=== PATIENT | male | born 1995 | race Caucasian/White ===

== ENCOUNTER 2016-11-21 17:12 | Emergency (ER) | payer OTHER ==
[2016-11-21 19:17] VITALS: BP 129/89
== END 2016-11-21 19:17 | disposition home or self-care (01) ==
LOC: ED 17:12
DX: H10.32 Unspecified acute conjunctivitis, left eye (principal)
CPT/HCPCS: J8540

== ENCOUNTER 2019-07-06 02:27 | Emergency (ER) | payer OTHER ==
[~2019-07-06] VITALS: Ht 172.7 cm; Wt 108.0 kg
[2019-07-06 02:33] VITALS: Ht 172.7 cm; Wt 108.0 kg
[2019-07-06 03:18] LABS: BASOPHIL % 0.6 % (0-2); PLATELET COUNT 286 x10^3mcL (130-400); RED CELL DISTRIBUTION WIDTH 11.8 % (11.5-14.5)
[2019-07-06 03:35] LABS: CARBON DIOXIDE 33.6 mmol/L (21-32); CHLORIDE SERUM 106 mmol/L (98-107); CREATININE SERUM 0.9 mg/dL (0.7-1.3); GFR1 > 60 mL/min; GLUCOSE SERUM 128 mg/dL (74-106); POTASSIUM SERUM 3.9 mmol/L (3.5-5.1); SODIUM SERUM 146 mmol/L (136-145)
[2019-07-06 03:40] LABS: ALBUMIN 4.2 g/dL (3.4-5.0); ALT/SGPT 59 U/L (16-63); BILIRUBIN TOTAL 0.3 mg/dL (0.20-1.00); LIPASE 159 IU/L (73-393); TOTAL PROTEIN, SERUM 7.8 g/dL (6.4-8.2)
[2019-07-06 04:07] LABS: ALKALINE PHOSPHATASE 64 U/L (46-116); AST/SGOT 22 U/L (15-37)
[2019-07-06 07:11] VITALS: BP 122/68
== END 2019-07-06 07:11 | disposition home or self-care (01) ==
LOC: ED 02:27
DX: K80.50 Calculus of bile duct without cholangitis or cholecystitis without obstruction (principal)
CPT/HCPCS: 36415; J1885

== ENCOUNTER 2019-08-03 21:54 | Inpatient (IN) | payer OTHER ==
[~2019-08-03] VITALS: Ht 172.7 cm; Wt 104.9 kg
[2019-08-03 23:07] VITALS: Ht 172.7 cm; Wt 104.9 kg
[2019-08-03 23:57] LABS: BASOPHIL % 0.9 % (0-2); PLATELET COUNT 319 x10^3mcL (130-400); RED CELL DISTRIBUTION WIDTH 12.2 % (11.5-14.5)
[2019-08-04 00:22] LABS: ALBUMIN 3.9 g/dL (3.4-5.0); AST/SGOT 19 U/L (15-37); BILIRUBIN TOTAL 0.3 mg/dL (0.20-1.00); CARBON DIOXIDE 27.2 mmol/L (21-32); CHLORIDE SERUM 104 mmol/L (98-107); CREATININE SERUM 0.8 mg/dL (0.7-1.3); GFR1 > 60 mL/min; GLUCOSE SERUM 96 mg/dL (74-106); POTASSIUM SERUM 3.8 mmol/L (3.5-5.1); SODIUM SERUM 140 mmol/L (136-145); TOTAL PROTEIN, SERUM 7.9 g/dL (6.4-8.2)
[2019-08-04 00:23] LABS: ALKALINE PHOSPHATASE 66 U/L (46-116); ALT/SGPT 48 U/L (16-63); LIPASE 180 IU/L (73-393)
[2019-08-04 04:18] LABS: ALBUMIN 3.5 g/dL (3.4-5.0); CARBON DIOXIDE 30.1 mmol/L (21-32); CHLORIDE SERUM 103 mmol/L (98-107); CREATININE SERUM 0.7 mg/dL (0.7-1.3); GFR1 > 60 mL/min; GLUCOSE SERUM 105 mg/dL (74-106); SODIUM SERUM 137 mmol/L (136-145); TOTAL PROTEIN, SERUM 7.1 g/dL (6.4-8.2)
[2019-08-04 04:19] LABS: ALKALINE PHOSPHATASE 56 U/L (46-116); ALT/SGPT 47 U/L (16-63); AST/SGOT 18 U/L (15-37); BILIRUBIN TOTAL 0.3 mg/dL (0.20-1.00); CALCIUM 8.2 mg/dL (8.5-10.1)
[2019-08-04 08:40] VITALS: BP 139/72
[2019-08-04 12:31] VITALS: BP 145/78
[2019-08-04 16:39] VITALS: BP 157/87
[2019-08-04 20:08] VITALS: BP 132/81
[2019-08-05 05:00] VITALS: BP 128/71
[2019-08-05 07:15] LABS: BASOPHIL % 0.1 % (0-2); PLATELET COUNT 302 x10^3mcL (130-400); RED CELL DISTRIBUTION WIDTH 12.4 % (11.5-14.5)
[2019-08-05 07:48] LABS: CALCIUM 8.8 mg/dL (8.5-10.1); CARBON DIOXIDE 29.2 mmol/L (21-32); CHLORIDE SERUM 103 mmol/L (98-107); CREATININE SERUM 0.8 mg/dL (0.7-1.3); GFR1 > 60 mL/min; GLUCOSE SERUM 99 mg/dL (74-106); MAGNESIUM 2.1 mg/dL (1.8-2.4); POTASSIUM SERUM 3.9 mmol/L (3.5-5.1); SODIUM SERUM 139 mmol/L (136-145)
[2019-08-05 09:03] VITALS: BP 119/77
[2019-08-05] MEDS ORDERED: IBU600 M2 PO (10:50)
[2019-08-05 12:30] VITALS: BP 120/69
[2019-08-05 13:23] VITALS: BP 120/69
== END 2019-08-05 14:08 | disposition home or self-care (01) | DRG 263 ==
LOC: ED 21:54 → MU 08-04 03:43
PROVIDERS: Emergency Medicine; Surgery; ADMIT Internal Medicine Pulmonary Disease
PROC: 0FT44ZZ Resection of Gallbladder, Percutaneous Endoscopic Approach (ICD-10-PCS; principal; 2019-08-04 09:00)
DX: K80.00 Calculus of gallbladder with acute cholecystitis without obstruction (principal); K76.0 Fatty (change of) liver, not elsewhere classified; E66.9 Obesity, unspecified; Z85.841 Personal history of malignant neoplasm of brain; Z68.35 Body mass index [BMI] 35.0-35.9, adult
CPT/HCPCS: G0378; J1170; J1644; J1885; J2250; J2270; J2405; J2543; J2704; J2710; J2765; J3010; J3490; J7030; J7042; Q0092; Q9967